=== PATIENT | male | born 1990 | race Caucasian/White ===

== ENCOUNTER 2018-06-16 18:31 | Emergency (ER) | payer SELFPAY ==
[~2018-06-16] VITALS: Ht 165.1 cm; Wt 54.4 kg
[2018-06-16 18:36] VITALS: BP 124/83
[2018-06-16 18:45] VITALS: BP 124/83
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
--- NOTE | 2018-06-16 19:09 | NUR ---
Pt report given to MARCIANO BURNS . Transfer of care at this time.
--- NOTE | 2018-06-16 19:11 | NUR ---
FAMILY AT BEDSIDE
--- NOTE | 2018-06-16 19:13 | NUR ---
Dr. Aguilar evaluating patient at bedside.
--- NOTE | 2018-06-16 19:15 | NUR ---
PT LAYING IN BED, RR EVEN AND UNLABORED. PT FAMILY AT BEDSIDE. PT DENIES SI/HI.
--- NOTE | 2018-06-16 19:20 | NUR ---
DR. WEINBERG AT BEDSIDE, PT FAMILY AT BEDSIDE.
--- NOTE | 2018-06-16 19:34 | NUR ---
PATIENT ELOPED FROM FACILITY. DISCHARGE INSTRUCTIONS NOT GIVEN TO PATIENT. DR. WEINBERG NOTIFIED.
--- NOTE | 2018-06-16 19:41 | NUR ---
PT LEFT WITH MONITOR WIRES, CALLED PT'S FATHER, NO ANSWER, LEFT VOICEMAIL TO RETURN EQUIPMENT
--- NOTE | 2018-06-16 20:25 | NUR ---
CALLED PT'S HOME, SPOKE WITH PT, STATED THAT HE DID NOT HAVE MONITOR WIRES WITH HIM WHEN HE LEFT.
== END 2018-06-16 19:34 | disposition left against medical advice (07) ==
LOC: MED 18:31
DX: F10.129 Alcohol abuse with intoxication, unspecified (principal); F32.9 Major depressive disorder, single episode, unspecified
CPT/HCPCS: 99283